=== PATIENT | male | born 1955 | race Caucasian/White ===

== ENCOUNTER → 2016-07-01 | Outpatient (CLI) | payer BC | LOC: COL.VAS 07:48 | DX: K57.30 Diverticulosis of large intestine without perforation or abscess without bleeding (principal); E78.4 Other hyperlipidemia; T14.8 Other injury of unspecified body region; Z87.891 Personal history of nicotine dependence; M79.671 Pain in right foot; M79.89 Other specified soft tissue disorders ==

== ENCOUNTER 2019-05-11 08:29 | Day surgery (SDC) | payer BC ==
[~2019-05-11] VITALS: Ht 188 cm; Wt 114.8 kg
[2019-05-11] VITALS (11 sets, daily range): BP systolic 110–128; BP diastolic 69–83; PULSE 59–69; TEMP 98.7
[2019-05-11] MEDS ORDERED: ELIQUIS 5MG PO ×2 (09:19→11:30)
[2019-05-11] MEDS ORDERED: VYTORIN 10 MG-11 TAB PO ×2 (09:20→11:31)
[2019-05-11] MEDS ORDERED: ASPIRIN E.C. 8181 MG PO (09:20)
[2019-05-11] MEDS ORDERED: MASON NATURAL1200 MG PO (09:21)
[2019-05-11 09:51] LABS: HEMATOCRIT 43.5 % (42.0-52.0); HEMOGLOBIN 14.3 g/dl (13.5-18.0); MEAN CELL VOLUME 85 fl (80.0-100.0); MEAN CORPUSCULAR HEMOGLOBIN 28 pg (27.0-31.0); MEAN CORPUSCULAR HGB CONC 33 g/dl (33.0-37.0); MEAN PLATELET VOLUME 9.5 fl (7.4-10.4); PLATELET COUNT 227 K/mm3 (130-400); REDCELL DISTRIBUTION WIDTH-CV 13.7 % (11.5-14.5)
[2019-05-11 09:58] LABS: PROTHROMBIN TIME 12.1 SECONDS (9.7-12.8)
[2019-05-11 10:02] LABS: CREATININE, serum 0.57 (0.66-1.25); POTASSIUM 4.3 mmol/L (3.4-5.0)
== END 2019-05-11 15:30 | disposition home or self-care (01) ==
LOC: COL.CAR 08:29
PROVIDERS: Internal Medicine Cardiovascular Disease
DX: I25.110 Atherosclerotic heart disease of native coronary artery with unstable angina pectoris (principal); R94.39 Abnormal result of other cardiovascular function study; E78.2 Mixed hyperlipidemia; Z86.711 Personal history of pulmonary embolism; Z79.01 Long term (current) use of anticoagulants; Z98.52 Vasectomy status; Z79.82 Long term (current) use of aspirin; Z87.891 Personal history of nicotine dependence
CPT/HCPCS: C1769; J1644; J2250; J3010; Q9967

== ENCOUNTER → 2019-11-25 | Outpatient (CLI) | payer BC ==
[~2019-11-25] VITALS: Ht 188 cm; Wt 110.6 kg
[~2019-11-25] MED LIST: ASPIRIN E.C. 8181 MG PO; ELIQUIS 5MG PO; FLEXERIL 1010 MG/TAB PO; MASON NATURAL1200 MG PO; TYLENOL 500MG500 MG PO; VYTORIN 10 MG-11 TAB PO; XARELTO10 MG PO
[2019-11-25 09:15] VITALS: BP 146/89; PULSE 68
[2019-11-25 10:10] VITALS: BP 142/91; PULSE 63
== END ==
LOC: COL.RAD 09:00
DX: M48.061 Spinal stenosis, lumbar region without neurogenic claudication (principal)
CPT/HCPCS: J3301